=== PATIENT | female | born 1985 | race Caucasian/White ===

== ENCOUNTER → 2016-10-27 | Outpatient (CLI) | payer OTHER | LOC: COL.VAS 10:30 | DX: I48.1 Persistent atrial fibrillation (principal) ==

== ENCOUNTER 2018-03-08 07:36 | Outpatient (CLI) | payer OTHER ==
[~2018-03-08] VITALS: Ht 167.6 cm; Wt 72.5 kg
[2018-03-08] MEDS ORDERED: TOPROL XL 25MG25 MG PO (08:04)
[2018-03-08 08:06] VITALS: BP 105/75; PULSE 75; TEMP 98.3
[2018-03-08] MEDS ORDERED: CEPHALEXIN500 M1 PO (09:17)
== END 2018-03-08 11:00 | disposition home or self-care (01) ==
LOC: COL.CAR 07:36
DX: I48.0 Paroxysmal atrial fibrillation (principal); F41.9 Anxiety disorder, unspecified; R06.83 Snoring; F32.9 Major depressive disorder, single episode, unspecified; Z88.6 Allergy status to analgesic agent; Z87.891 Personal history of nicotine dependence; Z82.49 Family history of ischemic heart disease and other diseases of the circulatory system

== ENCOUNTER 2021-11-16 09:51 | Emergency (ER) | payer OTHER ==
[~2021-11-16] VITALS: Ht 167.6 cm; Wt 87.3 kg
[~2021-11-16 09:51] MED LIST: CEPHALEXIN500 M1 PO; TOPROL XL 25MG25 MG PO
[2021-11-16 10:26] LABS: BASO % 0.6 % (0.0-2.0); EOS # 0.1 K/mm3 (0.0-0.7); GRAN # 4.7 K/mm3 (1.4-6.5); GRAN % 65.8 % (42.2-75.2); HEMATOCRIT 42.1 % (37.0-47.0); HEMOGLOBIN 15.2 g/dl (12.5-16.0); LYMPH % 28.2 % (20.0-51.0); MEAN CELL VOLUME 83 fl (80.0-100.0); MEAN CORPUSCULAR HEMOGLOBIN 30 pg (27-31); MEAN CORPUSCULAR HGB CONC 36 g/dl (33.0-37.0); MEAN PLATELET VOLUME 8.5 fl (7.4-10.4); MONO # 0.3 K/mm3 (0.1-0.6); MONO % 3.8 % (1.7-9.3); PLATELET COUNT 315 K/mm3 (130-400); RED BLOOD COUNT 5.07 M/mm3 (4.10-5.30); REDCELL DISTRIBUTION WIDTH-CV 12.8 % (11.5-14.5)
[2021-11-16 10:41] LABS: ALBUMIN 4.2 gm/dL (3.5-5.0); BILIRUBIN,TOTAL 0.7 mg/dL (0.2-1.2); CALCIUM 8.5 mg/dL (8.4-10.2); CREATININE, serum 0.74 mg/dL (0.57-1.11); POTASSIUM 3.3 mmol/L (3.5-4.5); TOTAL PROTEIN 7.4 gm/dL (6.2-8.1)
[2021-11-16] MEDS ORDERED: KLOR-CON20 MEQ PO (11:31)
[2021-11-16 11:55] VITALS: BP 123/91; PULSE 90; TEMP 98
== END 2021-11-16 12:36 | disposition home or self-care (01) ==
LOC: COL.ER 09:51
PROVIDERS: Personal Emergency Response Attendant
DX: I48.20 Chronic atrial fibrillation, unspecified (principal)
CPT/HCPCS: J2704

== ENCOUNTER 2022-07-29 13:35 | Emergency (ER) | payer OTHER ==
[~2022-07-29] VITALS: Ht 167.6 cm; Wt 86.8 kg
[~2022-07-29 13:35] MED LIST changes: +KLOR-CON20 MEQ PO
[2022-07-29 13:41] VITALS: TEMP 97.8
[2022-07-29] MEDS ORDERED: AMOXICILLIN 8751 TAB PO ×2 (14:32)
[2022-07-29 17:13] VITALS: BP 145/76; PULSE 96
== END 2022-07-29 17:13 | disposition home or self-care (01) ==
LOC: COL.ER 13:35
DX: O9A.212 Injury, poisoning and certain other consequences of external causes complicating pregnancy, second trimester (principal); S39.012A Strain of muscle, fascia and tendon of lower back, initial encounter; S80.211A Abrasion, right knee, initial encounter; Z3A.17 17 weeks gestation of pregnancy; W01.0XXA Fall on same level from slipping, tripping and stumbling without subsequent striking against object, initial encounter; Y92.59 Other trade areas as the place of occurrence of the external cause; Y93.01 Activity, walking, marching and hiking; Y99.0 Civilian activity done for income or pay

== ENCOUNTER 2022-12-21 05:57 | Inpatient (IN) | payer MEDICAID ==
[~2022-12-21] VITALS: Ht 167.6 cm; Wt 100.5 kg
[2022-12-21] VITALS (36 sets, daily range): BP systolic 120–168; BP diastolic 55–88; PULSE 95–123; TEMP 97.7–98.2
[~2022-12-21 05:57] MED LIST changes: +AMOXICILLIN 8751 TAB PO; +ANTACID200 MG PO; +ASPIRIN 81M81 MG/TA2 PO; +PRENATAL TABLET PO
[2022-12-21] MEDS ORDERED: PRILOSEC 20MG20 MG PO (06:35)
[2022-12-21 06:59] LABS: MEAN CELL VOLUME 88 fl (80.0-100.0); MEAN CORPUSCULAR HEMOGLOBIN 32 pg (27-31); MEAN CORPUSCULAR HGB CONC 36 g/dl (33.0-37.0); PLATELET COUNT 207 K/mm3 (130-400); RED BLOOD COUNT 4.09 M/mm3 (4.10-5.30); REDCELL DISTRIBUTION WIDTH-CV 15.9 % (11.5-14.5)
[2022-12-21 07:04] LABS: HEMATOCRIT 35.9 % (37.0-47.0)
[2022-12-21 08:10] LABS: BAND 6 % (0-10); LYMPHOCYTE 27 % (20.0-51.0); METAMYELOCYTE 1 % (0-0); NEUTROPHILS 65 % (42.0-75.2); PLATELET ESTIMATE NORMAL (NORMAL)
[2022-12-22 04:25] VITALS: BP 120/61; PULSE 92; TEMP 98.3
[2022-12-22 07:04] LABS: HEMOGLOBIN 11.9 g/dl (12.5-16.0)
[2022-12-22 07:07] LABS: HEMATOCRIT 33.5 % (37.0-47.0)
[2022-12-22 10:05] VITALS: BP 134/83; PULSE 99; TEMP 97.7
[2022-12-22 17:15] VITALS: BP 126/73; PULSE 95; TEMP 98
[2022-12-22 21:40] VITALS: BP 117/69; PULSE 93; TEMP 97.6
[2022-12-23 07:20] VITALS: BP 122/77; PULSE 88
== END 2022-12-23 13:54 | disposition home or self-care (01) | DRG 807 ==
LOC: OB 05:57 → LDR 05:57 → OB 11:21
PROVIDERS: ADMIT Obstetrics & Gynecology
PROC: 10E0XZZ Delivery of Products of Conception, External Approach (ICD-10-PCS; principal; 2022-12-21)
PROC: 10E0XZZ Delivery of Products of Conception, External Approach (ICD-10-PCS; 2022-12-21)
PROC: 10907ZC Drainage of Amniotic Fluid, Therapeutic from Products of Conception, Via Natural or Artificial Opening (ICD-10-PCS; 2022-12-21)
PROC: 10907ZC Drainage of Amniotic Fluid, Therapeutic from Products of Conception, Via Natural or Artificial Opening (ICD-10-PCS; 2022-12-21)
DX: O99.344 Other mental disorders complicating childbirth (principal); Z37.2 Twins, both liveborn; F41.9 Anxiety disorder, unspecified; F32.A Depression, unspecified; O32.2XX2 Maternal care for transverse and oblique lie, fetus 2; O99.892 Other specified diseases and conditions complicating childbirth; R00.0 Tachycardia, unspecified; O30.043 Twin pregnancy, dichorionic/diamniotic, third trimester; Z3A.37 37 weeks gestation of pregnancy; Z86.79 Personal history of other diseases of the circulatory system
CPT/HCPCS: J2590; J7120